=== PATIENT | male | born 1945 | race Caucasian/White ===

== ENCOUNTER 2018-02-25 17:29 | Inpatient (IN) | payer MEDICARE ==
[~2018-02-25] VITALS: Ht 180.3 cm; Wt 93.0 kg
--- NOTE | ~2018-02-25 | OP ---
PATIENT NAME: ABELINO LEMOS MEDICAL RECORD: [id number] :41 LOCATION:[facility] D.2309 ADMISSION DATE:02/25/18 SURGEON: JOHNATHON FLORES MD DATE OF OPERATION: 02/25/2018 SURGEON: Johnathon Flores MD ANESTHESIOLOGIST: Janelle Ghosh CRNA. No anesthesia was given. The patient was only monitored. PREOPERATIVE DIAGNOSIS: Possible bladder rupture. POSTOPERATIVE DIAGNOSIS: No bladder rupture is seen. PROCEDURE: Cystogram. FINDINGS: No bladder rupture noted. Multiple bladder diverticula were seen. BLOOD LOSS: None. CLINICAL HISTORY: This is a 72-year-old male who was transferred from [place] today. He was diagnosed there with a possible intraperitoneal bladder rupture. Apparently, this was diagnosed on a cystogram and a CT scan performed at the [facility]. The story is that he has severe congestive heart failure and they were giving him diuresis with Lasix. He has a chronic indwelling Forte catheter from being in urinary retention. Apparently, there was some problem with his initial catheter and it was not draining properly. They did change the Forte catheter to a new one. Somehow rather a cystogram was performed and a CT scan was performed. There is significant ascites. He has a right pleural effusion and on a chest x-ray, he has a left lower lobe pneumonia. Clinically, he has severe pitting edema, ascites, and an umbilical hernia. He also has penoscrotal edema. Furthermore, the notes from the sending hospital indicate that he has a 10% left ventricular ejection fraction. He was actually awaiting an LVAD device placement. Finally, he has chronic atrial fibrillation and he has been on Plavix, Eliquis, and other anticoagulation. His hemoglobin is 10.1. He is a devout [employer] and he refuses to have any blood given to him under any circumstance. He did state to myself and to Dr. Garcia that he would rather than be given blood. Given these circumstances, I reviewed the images sent over from [place]. This was with Dr. Garcia. There is significant ascites, but there is gas in the bladder on the CT scan from the Forte catheter. However, there is no gas in the abdomen. Also, on reviewing the cystogram images from the sending hospital, he appears to have diverticula, but no apparent rupture of his bladder. Therefore, we decided to bring him to our own cystoscopy table and perform a cystogram on him. If there is no evidence of bladder rupture, then we will not proceed with an exploratory laparotomy, which would be potentially life threatening. DESCRIPTION OF PROCEDURE: The patient was placed in supine position on the cystoscopy table. We checked with fluoroscopy to be sure that we were located in the area of the bladder. Through his Forte catheter, which he is indwelling and on CT scan, the Forte catheter balloon is indeed in the bladder, we instilled 150 mL of diluted IV contrast. This showed multiple bladder diverticula, but there is no extravasation at all of any contrast from the bladder. Therefore, the procedure was terminated. The contrast was allowed to drain out of the bladder. The patient's Forte catheter was put back to bag OPERATIVE REPORT [id number] ABELINO LEMOS drainage. Because of his significant medical problems, he will be transferred to the intensive care unit. TRANSINT:[id number] Voice Confirmation ID: [id number] DOCUMENT ID: [id number] JOHNATHON FLORES MD at 0933 CC: [id number] DICTATION DATE: 02/25/182300 HOSPITAL SECRETARY: 02/26/18 0119 ADM IN [facility] [address] [place] [address]
--- NOTE | ~2018-02-25 | MORECARE ---
CASE MANAGEMENT DISCHARGE SUMMARY PATIENT: ABELINO LEMOS UNIT: [id number] ADM DATE: 02/25/18 AGE: 72 : 43 SEX: M ROOM/BED: D.2135 AUTHOR: FLOR KOVACS PHYSICIAN: REFERRING PHYSICIAN: SAMANTHA EWING MD DATE OF SERVICE: 02/27/18 Discharge Plan Patient Name: ABELINO LEMOS Facility: [facility]:[place] : 1945 Planned Disposition: Acute Care Hospital Anticipated Discharge Date: 02/27/18 Discharge Date: 02/27/2018 Expected LOS: 2 Initial Reviewer: [email or web address] Initial Review Date: 02/25/2018 Generated: 02/27/18 5:53 pm Comments DCP- Discharge Planning Updated by [email or web address]: Shazia Ponce on 02/27/18 3:[address] LATE ENTRY 1600 PATIENT FOR TRANSFER BACK TO [facility] IN [facility]. HE HAS BEEN ASSIGNED TO ROOM 305. DR KAVEH GRAYSON IS THE ACCEPTING MD. PATIENT TO COMPLETE HIS CARE FOR PNEUMONIA AND CARDIAC ISSUES PER HIS PREVIOUS DEFINED MEDICAL PLAN. CONTACT PHONE NUMBER [phone]. MEDICAL RECORD UPDATED. PATIENT ALSO HAS NEWLY DIAGNOSED UTI. CULTURES PENDING. DIG LEVEL 2.04 AND NOTED TO TRANSFERING NURSE AND EMT. PATIENT NASAL OXYGEN AT 3/L VIA CANNULA. PCS, COBRA FORM AND NURSING TRANSFER FORMS COMPLETED. MELODIE SALAZAR, BEER STILL RUNNER COMPOUNDER NOTIFIED THAT [facility] WAS ON SITE TO TRANSFER. DCP- Discharge Planning Updated by [email or web address]: Shazia Ponce on 02/26/18 4:[address] 1145 PRIMARY NURSE, REBEKAH, ADVISED CM THAT PATIENT HAS REQUESTED TRANSFER TO HIS HOSPITAL IN [place], [place] HE HAS SEEN UROLOGY ON CONSULT. CM ADVISED HER TO CALL EASY ADMIT REGARDING TRANSFER AFTER SPEAKING WITH PRIMARY AND CONSULTATNTS. CHART BEING COPIED BY SILO MAN. RADIOLOGY FILMS REQUESTED ON DISC. MANAGER RESEARCH AND DEVELOPMENT AWARE. COBRA FORM AND PCS FORM TO BE COMPLETED. DR BURNS ADVISED NURSE TO HOLD TRANSFER. Last DP export: 02/27/18 2:39 Patient Name: ABELINO LEMOS Page [phone] at 1653 All edits/amendments must be made on the electronic document DICTATION DATE: 02/27/181652 CHIEF BUILDING INSPECTOR: CAROLYN 02/27/181652 RPT#: [id number] DC DATE:02/27/18 STATUS: DIS IN [facility] [address] [place] [address] END OF REPORT
--- NOTE | ~2018-02-25 | MORECARE ---
CASE MANAGEMENT DISCHARGE SUMMARY PATIENT: ABELINO LEMOS UNIT: [id number] ADM DATE: 02/25/18 AGE: 72 : 43 SEX: M ROOM/BED: D.2135 AUTHOR: FLOR KOVACS PHYSICIAN: REFERRING PHYSICIAN: SAMANTHA EWING MD DATE OF SERVICE: 02/28/18 Discharge Plan Patient Name: ABELINO LEMOS Facility: [facility]:[place] : 1945 Planned Disposition: Acute Care Hospital Anticipated Discharge Date: 02/27/18 Discharge Date: 02/27/2018 Expected LOS: 2 Initial Reviewer: [email or web address] Initial Review Date: 02/25/2018 Generated: 02/28/18 10:10 am Comments DCP- Discharge Planning Updated by [email or web address]: Shazia Ponce on 02/27/18 3:[address] LATE ENTRY 1600 PATIENT FOR TRANSFER BACK TO [facility] IN [facility]. HE HAS BEEN ASSIGNED TO ROOM [facility]. DR KAVEH GRAYSON IS THE ACCEPTING MD. PATIENT TO COMPLETE HIS CARE FOR PNEUMONIA AND CARDIAC ISSUES PER HIS PREVIOUS DEFINED MEDICAL PLAN. CONTACT PHONE NUMBER [phone]. MEDICAL RECORD UPDATED. PATIENT ALSO HAS NEWLY DIAGNOSED UTI. CULTURES PENDING. DIG LEVEL 2.04 AND NOTED TO TRANSFERING NURSE AND EMT. PATIENT NASAL OXYGEN AT 3/L VIA CANNULA. PCS, COBRA FORM AND NURSING TRANSFER FORMS COMPLETED. MELODIE SALAZAR, HAND CIGAR MAKER NOTIFIED THAT [facility] WAS ON SITE TO TRANSFER. DCP- Discharge Planning Updated by [email or web address]: Shazia Ponce on 02/26/18 4:[address] 1145 PRIMARY NURSE, REBEKAH, ADVISED CM THAT PATIENT HAS REQUESTED TRANSFER TO HIS HOSPITAL IN [place], [place] HE HAS SEEN UROLOGY ON CONSULT. CM ADVISED HER TO CALL EASY ADMIT REGARDING TRANSFER AFTER SPEAKING WITH PRIMARY AND CONSULTATNTS. CHART BEING COPIED BY FILM SORTER. RADIOLOGY FILMS REQUESTED ON DISC. SUPERIOR COURT CLERK AWARE. COBRA FORM AND PCS FORM TO BE COMPLETED. DR BURNS ADVISED NURSE TO HOLD TRANSFER. Last DP export: 02/27/18 3:53 Patient Name: ABELINO LEMOS Page [id number] at 0910 All edits/amendments must be made on the electronic document DICTATION DATE: 02/28/18908 FOURTH HAND: CAROLYN 02/28/18908 RPT#: [id number] DC DATE:02/27/18 STATUS: DIS IN [facility] [address] [place] [address] END OF REPORT
--- NOTE | ~2018-02-25 | EC ---
PATIENT:ABELINO LEMOS DATE OF SERVICE: 02/25/18 SEX: M MEDICAL RECORD: [id number] DATE OF : [birth year] LOCATION:D.M2 D.213 AGE OF PATIENT: 72 ADMISSION DATE: 02/25/18 REFERRING PHYSICIAN: INTERPRETING PHYSICIAN: JUAN FRANCISCO MARTINEZ MD ECHOCARDIOGRAM REPORT ECHO CHARGES 5 ECHO LIMITED Date: 02/26/18 1 DOPPLER ECHO COLOR FLOW 2 DOPPLER ECHO PULSE CLINICAL DIAGNOSIS: RE-ASSESS EF ECHOCARDIOGRAPHIC MEASUREMENTS (adult normal given) AC root (d.<3.7cm) 3.4 cm LV Septum d (<1.2 cm> 0 cm Valve Excursion 1.4 cm LV Septum (systole) 0 cm Left Atria (s.<4.0cm> 0 cm LVPW d(<1.2cm) 0 cm RV (d.<2.3cm) 0 cm LVPW (sytole) 0 cm LV diastole(<5.6CM) 0 cm MV E-F(>70mm/sec) 0 cm LV systole 0 cm LVOT Diameter 2.1 cm MV exc.(>10mm) 0 cm Est.ejection fraction (50-75%) % DOPPLER: LVIT 0 cm/sec A 0 cm/sec E 0 cm/sec LA 0 cm/sec RVSP 53.0 mmHg LVOT 72.0 cm/sec AOP1/2T 0 m/s Asc. Ao 268.0cm/sec RVOT 0 cm/sec RA 0 cm/sec PA 0 cm/sec AV Gradient Peak 0 mmHg AV Mean 0 mmHg AV Area 0 cm MV Gradient Peak 0 mmHg MV Mean 0 mmHg MV Area 0 cm COMMENTS: LIMITED STUDY (2-D,COLOR,DOPPLER) Technical Engineer: Himanshu CLEMONSOE Roll Hauler: 1 Dr. Martinez TAPE# PACS Pericardial Effusion N DATE OF SERVICE: 02/26/2018 FINDINGS: 1. Left ventricular chamber size is markedly dilated. Left ventricular systolic function is markedly reduced. Overall ejection fraction 15%. 2. Left atrium, right atrium, and right ventricular chamber sizes are dilated giving 4-chamber dilatation. 3. Valvular structures: Aortic valve demonstrates [id number] calcific aortic stenosis, valve area calculates to 1.1 cm-squared with a gradient of 29 mm across the valve. The remaining valvular structures have normal structure ECHOCARDIOGRAM REPORT [id number] CANELO,ABELINO and motion. 4. Doppler interrogation elsewise reveals moderate mitral regurgitation, severe tricuspid regurgitation. No other valvular insufficiency or stenosis. Pulmonary systolic pressure is elevated, estimated at 53 mmHg. 5. No evidence of pericardial effusion or left ventricular thrombus. TRANSINT:[id number] Voice Confirmation ID: [id number] DOCUMENT ID: [id number] JUAN FRANCISCO MARTINEZ MD at 1914 CC: [id number] DICTATION DATE: 02/26/18 1146 PROBATION AGENT: 02/26/18 1409 DIS IN 02/27/18 [facility] [address] [place] [address]
--- NOTE | ~2018-02-25 | MORECARE ---
CASE MANAGEMENT DISCHARGE SUMMARY PATIENT: ABELINO LEMOS UNIT: [id number] ADM DATE: 02/25/18 AGE: 72 : 41 SEX: M ROOM/BED: D.2135 AUTHOR: FLOR KOVACS PHYSICIAN: REFERRING PHYSICIAN: SAMANTHA EWING MD DATE OF SERVICE: 02/27/18 Discharge Plan Patient Name: ABELINO LEMOS Facility: [facility]:[place] : 1945 Planned Disposition: Acute Care Hospital Anticipated Discharge Date: 02/27/18 Discharge Date: Expected LOS: 2 Initial Reviewer: [email or web address] Initial Review Date: 02/25/2018 Generated: 02/27/18 4:39 pm Comments DCP- Discharge Planning Updated by [email or web address]: Shazia Ponce on 02/26/18 4:[address] 1145 PRIMARY NURSE, REBEKAH, ADVISED CM THAT PATIENT HAS REQUESTED TRANSFER TO HIS HOSPITAL IN [place], [place] HE HAS SEEN UROLOGY ON CONSULT. CM ADVISED HER TO CALL EASY ADMIT REGARDING TRANSFER AFTER SPEAKING WITH PRIMARY AND CONSULTATNTS. CHART BEING COPIED BY BULK STATION OPERATOR. RADIOLOGY FILMS REQUESTED ON DISC. [employer] COMPANY DRIVER AWARE. COBRA FORM AND PCS FORM TO BE COMPLETED. DR BURNS ADVISED NURSE TO HOLD TRANSFER. Patient Name: ABELINO LEMOS Page [phone] at 1539 All edits/amendments must be made on the electronic document DICTATION DATE: 02/27/18 153 SHIRT TRIMMER: CAROLYN 02/27/18 153 RPT#: [id number] DC DATE: STATUS: ADM IN [facility] [address] [place] [address] END OF REPORT
--- NOTE | ~2018-02-25 | CN ---
PATIENT NAME:ABELINO LEMOS MEDICAL RECORD: [id number] : 41 LOCATION:. D.2135 ADMIT DATE: 02/25/18 ACCOUNT: [id number] CONSULTING PHYSICIAN: JUAN FRANCISCO DEL ROSARIO MD REFERRING PHYSICIAN: SAMANTHA EWING MD DATE OF CONSULTATION: 02/26/2018 CARDIOLOGY CONSULTATION DIAGNOSES: 1. Cardiomyopathy. 2. Congestive heart failure, chronic systolic dysfunction. 3. Edema. 4. Hypotension. 5. Renal insufficiency. 6. Paroxysmal atrial fibrillation. 7. Coronary artery disease. HISTORY OF PRESENT ILLNESS: Mr. Lemos is a gentleman, who was transferred from [place], who is well known to the [facility]. He was transferred for a possible bladder rupture; however, at surgery was found to not be the case. He has a severe cardiomyopathy, ejection fraction 10% range, chronic systolic dysfunction, chronic edema, chronic hypotension. He is being considered for an LVAD in the [facility]. He has no acute complaints here. The edema and anasarca are overall unchanged. PHYSICAL EXAMINATION: GENERAL APPEARANCE: Well-nourished, well-developed, appears stated age. Level of distress, comfortable. PSYCHIATRIC: Mental status, alert, normal affect. Orientation, oriented to time, place and person. EYES: Lids and conjunctiva, noninjected. No discharge, no pallor. ENT: Lips, teeth, gums, normal dentition. Oropharynx, no cyanosis, no pallor. NECK: Carotid arteries, bilateral normal upstroke, no bruits, no thrills. JUGULAR VEINS: No jugular venous pressure or distention. CERVICAL LYMPH NODES: Nontender, nonenlarged. THYROID: Not enlarged. Nontender. No nodules. LUNGS: Respiratory effort, unlabored. CHEST: Normal curvature. No thoracic deformity. No chest wall tenderness. Percussion, resonant. Auscultation, clear. No wheezes, no rales, no rhonchi. CARDIOVASCULAR: Precordial exam, nondisplaced. No heaves or pericardial thrills. Rate and rhythm, regular. Heart sounds, normal S1, normal S2. No S3, no gallop, no rub. Systolic murmur, not heard. Diastolic murmur, not heard. EXTREMITIES: No cyanosis, no edema. Peripheral pulses, full and equal in all extremities, except as noted. No bruits appreciated. ABDOMEN: Soft, nondistended. Normal aorta. No bruit. Nontender. No masses. Liver, nontender, no hepatomegaly. Spleen, nontender, no splenomegaly. MUSCULOSKELETAL: No joint tenderness. No joint swelling. No erythema. NEUROLOGICAL: Normal gait, normal strength, normal tone. SKIN: Warm and dry. OVERALL IMPRESSION: Chronic hypotension secondary to severe cardiomyopathy. At this time, we could try dobutamine to see if this will improve his forward flow and his cardiac output and improve his hypotension as well as improve his edema, but most likely at this time no other cardiac workup or treatment is necessary. CONSULT REPORT [id number] ABELINO LEMOS We will get him back into the [employer] system as they know him well and continue to consider LVAD therapy if they deem this appropriate. TRANSINT:[id number] Voice Confirmation ID: [id number] DOCUMENT ID: [id number] JUAN FRANCISCO DEL ROSARIO MD at 1913 CC: [id number] DICTATION DATE: 02/26/18 1044 GLASS TECHNICIAN: 02/26/18 1359 DIS IN 02/27/18 [facility] [address] [place] [address]
[2018-02-25] MEDS ORDERED: LANOXIN125 MCG PO (21:07)
[2018-02-25] MEDS ORDERED: METOLAZONE5 MG PO (21:07)
[2018-02-25] MEDS ORDERED: METOPROLOL TART25 MG PO (21:08)
[2018-02-25] MEDS ORDERED: FLOMAX0.4 MG PO (21:08)
[2018-02-25 21:45] VITALS: BP 87/43; BMI 28.6
[2018-02-25 23:00] VITALS: BP 87/57
[2018-02-26] VITALS (19 sets, daily range): BP systolic 72–103; BP diastolic 33–78; Ht 180.3 cm; Wt 93.0 kg
[2018-02-26 03:14] LABS: BASOPHILS 0 % (0-2); EOSINOPHILS 1.8 % (0-7); HEMATOCRIT 34.8 % (42.0-54.0); HEMOGLOBIN 11.3 g/dL (13.5-17.5); IMMATURE GRANULOCYTES 0.1 % (0-5); LYMPHOCYTES 5.5 % (15-50); MCH 30.1 pg (26.0-34.0); MCHC 32.5 g/dL (31.0-37.0); MCV 92.6 fL (80.0-100.0); MEAN PLATELET VOLUME 10.6 fL (7.4-10.4); MONOCYTES 8.9 % (2-11); NEUTROPHILS 83.7 % (40-80); PLATELET COUNT 322 10x3/uL (130-400); RBC 3.76 10x6/uL (4.20-6.10); RDW 19.8 % (11.5-14.5); WBC 7.3 10x3/uL (4.8-10.8)
[2018-02-26 03:53] LABS: ALKALINE PHOSPHATASE 101 U/L (46-116); ALT (SGPT) 10 U/L (10-68); BILIRUBIN - TOTAL 1.54 mg/dL (0.2-1.3); CALC OSMOLALITY 276 mosm/kg (275-300); CALCIUM 8.3 mg/dL (8.5-10.1); CARBON DIOXIDE 34.7 mmol/L (21.0-32.0); CHLORIDE - SERUM 92 mmol/L (98-107); CKMB 2.4 U/L (0.0-3.6); CREATINE KINASE 45 UL (21-232); CREATININE - SERUM 1.8 mg/dL (0.6-1.3); GLUCOSE 105 mg/dL (74-106); MAGNESIUM - SERUM 1.9 mg/dL (1.8-2.4); PHOSPHOROUS 4.1 mg/dL (2.5-4.9); PRO BNP 12658 pg/mL (0-125); SODIUM 132 mmol/L (136-145); T4 THYROXIN - FREE 1.13 ng/dL (0.76-1.46); THYROID STIMULATING HORMONE 7.29 uIU/mL (0.36-3.74); TROPONIN-I 0.054 ng/mL (0.000-0.060); UREA NITROGEN 46 mg/dL (7-18); eGFR NON AFRICAN AMERICAN 39 mL/min (90-120)
[2018-02-26 14:10] LABS: APPEARANCE HAZY (CLEAR); BILIRUBIN NEGATIVE (NEGATIVE); COLOR YELLOW (YELLOW); GLUCOSE NEGATIVE (NEGATIVE); KETONE NEGATIVE (NEGATIVE); NITRITE NEGATIVE (NEGATIVE); PROTEIN TRACE mg/dL (NEGATIVE); UROBILINOGEN NORMAL (NORMAL)
[2018-02-26 14:11] LABS: WHITE CELLS - URINE >50 /hpf (0-5)
[2018-02-26 14:12] LABS: AMORPHOUS SEDIMENT <1+ /lpf (NONE SEEN); BACTERIA MANY /hpf (NONE SEEN); EPITHELIAL CELLS 0-5 /hpf (0-5); MUCUS <1+ /lpf (NONE SEEN); RED CELLS - URINE >50 /hpf (0-5); YEAST OCC /hpf (NONE SEEN)
[2018-02-27 00:20] VITALS: BP 99/66
[2018-02-27 04:49] VITALS: BP 88/67
[2018-02-27 06:33] LABS: ALBUMIN 2.1 g/dL (3.4-5.0); ANION GAP 11.2 mmol/L (8-16); BILIRUBIN - TOTAL 1.96 mg/dL (0.2-1.3); C-REACTIVE PROTEIN 9.8 mg/dL (0.0-0.9); CALCIUM 8.4 mg/dL (8.5-10.1); CARBON DIOXIDE 31.4 mmol/L (21.0-32.0); CREATININE - SERUM 1.7 mg/dL (0.6-1.3); DIGOXIN 2.07 ng/mL (0.90-2.00); MAGNESIUM - SERUM 1.8 mg/dL (1.8-2.4); PHOSPHOROUS 3.7 mg/dL (2.5-4.9); POTASSIUM - SERUM 4.6 mmol/L (3.5-5.1); PROTEIN - SERUM 6.4 g/dL (6.4-8.2)
[2018-02-27 07:07] LABS: BASOPHILS 0.2 % (0-2); EOSINOPHILS 1.7 % (0-7); HEMATOCRIT 35.7 % (42.0-54.0); HEMOGLOBIN 11.5 g/dL (13.5-17.5); IMMATURE GRANULOCYTES 0.3 % (0-5); LYMPHOCYTES 8.8 % (15-50); MCH 29.6 pg (26.0-34.0); MCHC 32.2 g/dL (31.0-37.0); MCV 91.8 fL (80.0-100.0); MEAN PLATELET VOLUME 10.6 fL (7.4-10.4); MONOCYTES 11.3 % (2-11); NEUTROPHILS 77.7 % (40-80); PLATELET COUNT 320 10x3/uL (130-400); RBC 3.89 10x6/uL (4.20-6.10); WBC 6.4 10x3/uL (4.8-10.8)
[2018-02-27 08:52] VITALS: BP 92/63
[2018-02-27 15:44] VITALS: BP 99/68
[2018-03-01 05:15] LABS: HEPATITIS C ANTIBODY <0.1 (0.0-0.9)
== END 2018-02-27 16:07 | disposition short-term general hospital (02) | DRG 698 ==
LOC: D.MS 17:29 → D.ICU 20:50 → D.MS 20:50 → D.ICU 22:48 → D.M2 02-26 22:47
PROVIDERS: Family Medicine; Surgery; Urology
PROC: BT101ZZ Fluoroscopy of Bladder using Low Osmolar Contrast (ICD-10-PCS; principal; 2018-02-25 22:30)
DX: N32.3 Diverticulum of bladder (principal); J18.9 Pneumonia, unspecified organism; I50.22 Chronic systolic (congestive) heart failure; I42.9 Cardiomyopathy, unspecified; N17.9 Acute kidney failure, unspecified; J44.0 Chronic obstructive pulmonary disease with (acute) lower respiratory infection; R18.8 Other ascites; Z95.0 Presence of cardiac pacemaker; I48.0 Paroxysmal atrial fibrillation; I25.10 Atherosclerotic heart disease of native coronary artery without angina pectoris; I95.9 Hypotension, unspecified